=== PATIENT | female | born 1950 | race Two or more races ===

== ENCOUNTER 2020-10-14 06:11 | Day surgery (SDC) | payer OTHER | END 2020-10-14 10:35 | disposition home or self-care (01) | LOC: AMB-ENDOS 06:11 | PROVIDERS: ATTEND Surgery | DX: D12.0 Benign neoplasm of cecum (principal); Z20.828 Contact with and (suspected) exposure to other viral communicable diseases; Z93.3 Colostomy status ==

== ENCOUNTER 2021-10-06 11:30 | Inpatient (IN) | payer OTHER ==
[~2021-10-06] VITALS: Ht 157.5 cm; Wt 83.5 kg
[2021-10-06] MEDS ORDERED: DIOVAN HCT 1601 EACH PO (13:14)
[2021-10-06] MEDS ORDERED: CARVEDILOL6.25 MG (13:14)
[2021-10-06] MEDS ORDERED: GLUMETZA500 MG PO (13:15)
[2021-10-06] MEDS ORDERED: SINGULAIR10 MG PO (13:15)
[2021-10-06] MEDS ORDERED: FOLIC (13:15)
[2021-10-06] MEDS ORDERED: SYNTHROID50 MCG PO (13:16)
[2021-10-06] MEDS ORDERED: NEXIUM40 M1 PO (13:16)
[2021-10-06] MEDS ORDERED: ANASTROZOLE1 MG PO (13:17)
[2021-10-06] MEDS ORDERED: HIGH POTENCY I134 MG PO (13:17)
[2021-10-06] MEDS ORDERED: DOCUSATE SODIU250 MG PO (13:18)
[2021-10-06] MEDS ORDERED: HUMIRA PO (13:19)
[2021-10-06] MEDS ORDERED: PREDNISONE PO (13:19)
[2021-10-06] MEDS ORDERED: RESTORIL30 M1 PO (13:20)
[2021-10-12] MEDS ORDERED: METHOTREXATE2.5 MG (15:37)
[2021-10-12] MEDS ORDERED: DOCUSATE CALCI240 MG (15:37)
[2021-10-12] MEDS ORDERED: PROTECT PLUS S1 EACH (15:37)
[2021-10-12] MEDS ORDERED: FAMOTIDINE20 MG (15:37)
[2021-10-12] MEDS ORDERED: GAS RELIEF125 MG (15:37)
[2021-10-12] MEDS ORDERED: FOLIC ACID1 MG (15:37)
[2021-10-12] MEDS ORDERED: MILLIPRED5 MG (15:39)
[2021-10-12] MEDS ORDERED: HUMIRA PEN40 MG/0.1 (15:40)
[2021-10-12] MEDS ORDERED: RAYOS5 MG (15:40)
== END 2021-11-07 17:22 | disposition home or self-care (01) | DRG 344 ==
LOC: O/R 10-12 09:45 → SURH 10-12 11:00
PROVIDERS: ADMIT Surgery; ATTEND Surgery
PROC: 3E0F7SF Introduction of Other Gas into Respiratory Tract, Via Natural or Artificial Opening (ICD-10-PCS; 2021-10-12)
PROC: 0DSL4ZZ Reposition Transverse Colon, Percutaneous Endoscopic Approach (ICD-10-PCS; principal; 2021-10-12 11:00)
PROC: 3E0F7GC Introduction of Other Therapeutic Substance into Respiratory Tract, Via Natural or Artificial Opening (ICD-10-PCS; 2021-10-13)
PROC: 4A033R1 Measurement of Arterial Saturation, Peripheral, Percutaneous Approach (ICD-10-PCS; 2021-10-15)
PROC: BT4JZZZ Ultrasonography of Kidneys and Bladder (ICD-10-PCS; 2021-10-15)
PROC: B54MZZZ Ultrasonography of Right Upper Extremity Veins (ICD-10-PCS; 2021-10-16)
PROC: 05HY33Z Insertion of Infusion Device into Upper Vein, Percutaneous Approach (ICD-10-PCS; 2021-10-18)
PROC: 30243N1 Transfusion of Nonautologous Red Blood Cells into Central Vein, Percutaneous Approach (ICD-10-PCS; 2021-10-19)
PROC: 0W9H30Z Drainage of Retroperitoneum with Drainage Device, Percutaneous Approach (ICD-10-PCS; 2021-10-22)
PROC: 0W9G30Z Drainage of Peritoneal Cavity with Drainage Device, Percutaneous Approach (ICD-10-PCS; 2021-10-22)
PROC: BW2110Z Computerized Tomography (CT Scan) of Abdomen and Pelvis using Low Osmolar Contrast, Unenhanced and Enhanced (ICD-10-PCS; 2021-10-22)
PROC: 02PY33Z Removal of Infusion Device from Great Vessel, Percutaneous Approach (ICD-10-PCS; 2021-10-28)
PROC: 8E0ZXY6 Isolation (ICD-10-PCS; 2021-10-30)
PROC: 05HP33Z Insertion of Infusion Device into Right External Jugular Vein, Percutaneous Approach (ICD-10-PCS; 2021-11-01)
DX: K57.20 Diverticulitis of large intestine with perforation and abscess without bleeding (principal); K65.1 Peritoneal abscess; K63.2 Fistula of intestine; N17.8 Other acute kidney failure; E27.49 Other adrenocortical insufficiency; E87.1 Hypo-osmolality and hyponatremia; J90 Pleural effusion, not elsewhere classified; A04.72 Enterocolitis due to Clostridium difficile, not specified as recurrent; K57.30 Diverticulosis of large intestine without perforation or abscess without bleeding; I13.10 Hypertensive heart and chronic kidney disease without heart failure, with stage 1 through stage 4 chronic kidney disease, or unspecified chronic kidney disease; N18.2 Chronic kidney disease, stage 2 (mild); K21.9 Gastro-esophageal reflux disease without esophagitis; E03.8 Other specified hypothyroidism; E11.9 Type 2 diabetes mellitus without complications; Z79.4 Long term (current) use of insulin; G47.00 Insomnia, unspecified; E83.42 Hypomagnesemia; M06.8A Other specified rheumatoid arthritis, other specified site; Z86.718 Personal history of other venous thrombosis and embolism; J45.20 Mild intermittent asthma, uncomplicated; D50.8 Other iron deficiency anemias; I95.89 Other hypotension; D72.828 Other elevated white blood cell count; E83.39 Other disorders of phosphorus metabolism; F43.23 Adjustment disorder with mixed anxiety and depressed mood; E87.6 Hypokalemia; E88.09 Other disorders of plasma-protein metabolism, not elsewhere classified; Z79.52 Long term (current) use of systemic steroids; Z20.822 Contact with and (suspected) exposure to COVID-19

== ENCOUNTER 2021-10-07 09:14 | Outpatient (CLI) | payer OTHER ==
[~2021-10-07 09:14] MED LIST: ANASTROZOLE1 MG PO; CARVEDILOL6.25 MG; DIOVAN HCT 1601 EACH PO; DOCUSATE SODIU250 MG PO; FOLIC; GLUMETZA500 MG PO; HIGH POTENCY I134 MG PO; HUMIRA PO; NEXIUM40 M1 PO; PREDNISONE PO; RESTORIL30 M1 PO; SINGULAIR10 MG PO; SYNTHROID50 MCG PO
== END 2021-10-07 09:15 | disposition home or self-care (01) ==
LOC: NUCLEAR 09:14
PROVIDERS: ATTEND Internal Medicine Geriatric Medicine
DX: Z86.718 Personal history of other venous thrombosis and embolism (principal); I82.493 Acute embolism and thrombosis of other specified deep vein of lower extremity, bilateral

== ENCOUNTER 2021-12-29 09:07 | Outpatient (CLI) | payer OTHER ==
[~2021-12-29 09:07] MED LIST changes: +DOCUSATE CALCI240 MG; +FAMOTIDINE20 MG; +FOLIC ACID1 MG; +GAS RELIEF125 MG; +HUMIRA PEN40 MG/0.1; +METHOTREXATE2.5 MG; +MILLIPRED5 MG; +PROTECT PLUS S1 EACH; +RAYOS5 MG
== END 2021-12-29 15:11 | disposition home or self-care (01) ==
LOC: LAB 09:07
PROVIDERS: ATTEND Surgery
DX: Z93.3 Colostomy status (principal); K57.20 Diverticulitis of large intestine with perforation and abscess without bleeding; R19.4 Change in bowel habit; K63.2 Fistula of intestine

== ENCOUNTER 2022-01-05 11:30 | Inpatient (IN) | payer OTHER ==
[~2022-01-05] VITALS: Ht 157.5 cm; Wt 74.4 kg
[2022-01-12] MEDS ORDERED: DOCUSATE CALCI240 MG (08:08)
[2022-01-12] MEDS ORDERED: FOLIC ACID1 MG (08:08)
[2022-01-12] MEDS ORDERED: HUMIRA(CF)40 MG/0.1 (08:08)
[2022-01-12] MEDS ORDERED: PROTECT PLUS S1 EACH (08:09)
[2022-01-12] MEDS ORDERED: WAL-DRYL ALLERG25 MG (08:09)
[2022-01-12] MEDS ORDERED: FLONASE16 GM (08:09)
[2022-01-12] MEDS ORDERED: AZELASTINE137 MCG/0. (08:09)
[2022-01-12] MEDS ORDERED: PANTOPRAZOLE SO40 MG (08:10)
[2022-01-12] MEDS ORDERED: GAS RELIEF125 MG (08:10)
[2022-01-12] MEDS ORDERED: RESTASIS1 EACH (08:10)
[2022-01-12] MEDS ORDERED: VALSARTAN40 MG (08:10)
[2022-01-12] MEDS ORDERED: PAIN RELIEVER500 M5 (08:11)
[2022-01-12] MEDS ORDERED: CETIRIZINE HCL10 MG (08:11)
[2022-01-16] MEDS ORDERED: ULTRACET PO (09:11)
[2022-01-16] MEDS ORDERED: TAMS0.4C PO (09:11)
== END 2022-01-16 13:08 | disposition home or self-care (01) | DRG 330 ==
LOC: SURH 01-11 08:22 → ICU-2 01-11 08:22 → OB/GYN 01-11 10:30 → SURH 01-11 11:17 → OB/GYN 01-11 11:30 → SURH 01-16 13:08
PROVIDERS: ADMIT Surgery; ATTEND Surgery
PROC: 0WPG43Z Removal of Infusion Device from Peritoneal Cavity, Percutaneous Endoscopic Approach (ICD-10-PCS; 2022-01-11)
PROC: 0DT84ZZ Resection of Small Intestine, Percutaneous Endoscopic Approach (ICD-10-PCS; principal; 2022-01-11 10:30)
DX: K63.1 Perforation of intestine (nontraumatic) (principal); K63.2 Fistula of intestine; Z93.3 Colostomy status; Z20.822 Contact with and (suspected) exposure to COVID-19; N73.6 Female pelvic peritoneal adhesions (postinfective); D12.6 Benign neoplasm of colon, unspecified; I11.9 Hypertensive heart disease without heart failure; E11.9 Type 2 diabetes mellitus without complications; Z79.4 Long term (current) use of insulin

== ENCOUNTER 2022-03-18 07:26 | Outpatient (CLI) | payer OTHER ==
[~2022-03-18 07:26] MED LIST changes: +AZELASTINE137 MCG/0.; +CETIRIZINE HCL10 MG; +FLONASE16 GM; +HUMIRA(CF)40 MG/0.1; +PAIN RELIEVER500 M5; +PANTOPRAZOLE SO40 MG; +RESTASIS1 EACH; +TAMS0.4C PO; +ULTRACET PO; +VALSARTAN40 MG; +WAL-DRYL ALLERG25 MG
== END 2022-03-18 07:29 | disposition home or self-care (01) ==
LOC: NUCLEAR 07:26
PROVIDERS: ATTEND Internal Medicine Gastroenterology
DX: K31.84 Gastroparesis (principal); Z88.6 Allergy status to analgesic agent; Z91.041 Radiographic dye allergy status; Z88.8 Allergy status to other drugs, medicaments and biological substances
CPT/HCPCS: 78264; A9541

== ENCOUNTER → 2022-03-22 08:49 | Outpatient (CLI) | payer OTHER | END | disposition home or self-care (01) | LOC: RX STUDY 08:49 | PROVIDERS: ATTEND Internal Medicine Gastroenterology | DX: K44.9 Diaphragmatic hernia without obstruction or gangrene (principal) ==